=== PATIENT | male | born 1970 | race Caucasian/White ===

== ENCOUNTER 2019-05-26 13:59 | Emergency (ER) | payer BC, MEDICARE ==
[2019-05-26] MEDS ORDERED: Ketorolac 60 MG/2 ML SDV IM ONE (14:22)
--- NOTE | 2019-05-26 14:28 | EDM.PDOC ---
ED HPI GENERAL MEDICAL PROBLEM - General Chief Complaint: Back Pain or Injury Stated Complaint: BACK PAIN Time Seen by Provider: 05/26/19 14:04 Source of Information: Reports: Patient History Limitations: Reports: No Limitations - History of Present Illness INITIAL COMMENTS - FREE TEXT/NARRATIVE: HISTORY AND PHYSICAL: History of present illness: Patient is a 48-year-old male who presents to the ED today via private vehicle with concern of low back pain and neck pain after falling on the ice that occurred 4-5 days ago. Patient states he stepped out of his vehicle when he slipped on the ice and landed on his low back. Patient states he did not hit his head directly and did not lose consciousness. Patient states since then he' s had low back pain and neck pain. Patient states he also has had watery diarrhea over the past 2-3 days. Patient denies any other associated symptoms at the diarrhea or any other symptoms or concerns.Patient denies saddle anesthesia or any loss or retention of bowel and bladder function. Patient denies fever, chills, chest pain, shortness of breath, or cough. Denies headache, change in vision, syncope, or near syncope. Denies nausea, vomiting, abdominal pain, constipation, or dysuria. Has not noted any blood in urine or stool. Patient has been eating and drinking appropriately. Review of systems: As per history of present illness and below otherwise all systems reviewed and negative. Past medical history: As per history of present illness and as reviewed below otherwise noncontributory. Surgical history: As per history of present illness and as reviewed below otherwise noncontributory. Social history: See social history for further information Family history: As per history of present illness and as reviewed below otherwise noncontributory. Physical exam: General: Patient is alert, oriented, and in no acute distress. Patient sitting comfortably on exam table. HEENT: Atraumatic, normocephalic, pupils equal and reactive bilaterally, negative for conjunctival pallor or scleral icterus, mucous membranes moist, TMs normal bilaterally, throat clear, neck supple, nontender, trachea midline. No drooling or trismus noted. No meningeal signs. No hot potato voice noted. Lungs: Clear to auscultation, breath sounds equal bilaterally, chest nontender. Heart: S1S2, regular rate and rhythm without overt murmur Abdomen: Soft, nondistended, nontender. Negative for masses or hepatosplenomegaly. Negative for costovertebral tenderness. Pelvis: Stable nontender. Genitourinary: Deferred. Rectal: Deferred. Skin: Intact, warm, dry. No lesions or rashes noted. Extremities/musculoskeletal: Atraumatic, negative for cords or calf pain. Neurovascular unremarkable.No obvious deformity of the complete spine. No step- offs, crepitus, or point tenderness of the spinous process of complete spine. Patient does have pain with palpation of the right sided trapezius muscle and the paraspinous muscles of the lumbar spine. SLR intact bilaterally. Patellar reflex intact bilaterally. Heel/toe gait intact. Neuro: Awake, alert, oriented. Cranial nerves II through XII unremarkable. Cerebellum unremarkable. Motor and sensory unremarkable throughout. Exam nonfocal. Notes: Discussed the importance for follow-up with a primary care provider. Voices understanding and is agreeable to plan of care. Denies any further questions or concerns at this time. Diagnostics: CBC, CMP, UA, stool studies, ova and parasite, C. difficile, cervical XR, lumbar XR Therapeutics: Toradol, Norflex Prescription: Diclofenac, Flexeril Impression: Neck injury Low back injury H/O diarrhea Plan: 1. Take medication as prescribed. You can also use Tylenol as directed for pain and discomfort. 2. Follow-up with her primary care provider as discussed. Return to the ED as needed and as discussed. Definitive disposition and diagnosis as appropriate pending reevaluation and review of above. Back Pain Score (Numeric/FACES): 9 - Related Data Allergies Allergy/AdvReac Type Severity Reaction Status Date / Time No Known Allergies Allergy Verified 05/26/19 14:18 Home Meds: Home Meds . [No Known Home Meds] 05/26/19 [History] Past Medical History - Infectious Disease History Infectious Disease History: Reports: Chicken Pox - Past Surgical History GI Surgical History: Reports: Appendectomy Social & Family History - Family History Family Medical History: Noncontributory - Tobacco Use Smoking Status *Q: Never Smoker - Recreational Drug Use Recreational Drug Use: No ED ROS GENERAL - Review of Systems Review Of Systems: Comprehensive ROS is negative, except as noted in HPI. ED EXAM, GENERAL - Physical Exam Exam: See Below (see dictation) Course - Vital Signs Last Recorded V/S: Last Vital Signs Temp 97.0 F 05/26/19 14:12 Pulse 110 H 05/26/19 14:12 Resp 18 05/26/19 14:12 BP 148/79 H 05/26/19 14:12 Pulse Ox 96 05/26/19 14:12 - Orders/Labs/Meds Orders: Active Orders 24 hr Category Date Time Status CULTURE STOOL + CAMPY+SHIGATOX [RM] Stat Lab 05/26/19 15:00 Results OVA & PARASITES BY IMMUNOASSAY [MREF] Stat Lab 05/26/19 15:00 Received Labs: Laboratory Tests 05/26/19 05/26/19 05/26/19 Range/Units 14:29 14:29 15:00 WBC 7.67 (4.0-11.0) K/uL RBC 5.01 (4.50-5.90) M/uL Hgb 15.3 (13.0-17.0) g/dL Hct 43.8 (38.0-50.0) % MCV 87.4 (80.0-98.0) fL MCH 30.5 (27.0-32.0) pg MCHC 34.9 (31.0-37.0) g/dL RDW Std Deviation 44.1 (28.0-62.0) fl RDW Coeff of Ashley 14 (11.0-15.0) % Plt Count 267 (150-400) K/uL MPV 9.50 (7.40-12.00) fL Neut % (Auto) 68.1 (48.0-80.0) % Lymph % (Auto) 13.3 L (16.0-40.0) % Sunflower % (Auto) 14.5 (0.0-15.0) % Eos % (Auto) 4.0 (0.0-7.0) % Baso % (Auto) 0.1 (0.0-1.5) % Neut # (Auto) 5.2 (1.4-5.7) K/uL Lymph # (Auto) 1.0 (0.6-2.4) K/uL Sunflower # (Auto) 1.1 H (0.0-0.8) K/uL Eos # (Auto) 0.3 (0.0-0.7) K/uL Baso # (Auto) 0.0 (0.0-0.1) K/uL Sodium 139 (136-148) mmol/L Potassium 3.6 (3.5-5.1) mmol/L Chloride 104 (98-107) mmol/L Carbon Dioxide 21.3 (21.0-32.0) mmol/L BUN 16 (7.0-18.0) mg/dL Creatinine 1.1 (0.8-1.3) mg/dL Est Cr Clr Drug Dosing 91.12 mL/min Estimated GFR (MDRD) > 60.0 ml/min Glucose 155 H (74-106) mg/dL Calcium 8.6 (8.5-10.1) mg/dL Total Bilirubin 0.4 (0.2-1.0) mg/dL AST 17 (15-37) IU/L ALT 21 (14-63) IU/L Alkaline Phosphatase 89 (46-116) U/L Total Protein 7.4 (6.4-8.2) g/dL Albumin 3.5 (3.4-5.0) g/dL Globulin 3.9 (2.6-4.0) g/dL Albumin/Globulin Ratio 0.9 (0.9-1.6) Lipase 69 L (73-393) U/L Urine Color YELLOW Urine Appearance CLEAR Urine pH 5.5 (5.0-8.0) Ur Specific Eliot >= 1.030 (1.001-1.035) Urine Protein NEGATIVE (NEGATIVE) mg/dL Urine Glucose (UA) NEGATIVE (NEGATIVE) mg/dL Urine Ketones NEGATIVE (NEGATIVE) mg/dL Urine Occult Blood NEGATIVE (NEGATIVE) Urine Nitrite NEGATIVE (NEGATIVE) Urine Bilirubin NEGATIVE (NEGATIVE) Urine Urobilinogen 0.2 (<2.0) EU/dL Ur Leukocyte Esterase NEGATIVE (NEGATIVE) Meds: Medications Discontinued Medications Generic Name Dose Route Start Last Admin Trade Name Freq PRN Reason Stop Dose Admin Ketorolac Tromethamine 60 mg 05/26/19 14:22 05/26/19 14:44 Toradol IM 05/26/19 14:23 60 mg ONETIME ONE Administration Orphenadrine Citrate 60 mg 05/26/19 14:22 05/26/19 14:44 Norflex IM 05/26/19 14:23 60 mg ONETIME ONE Administration Departure - Departure Time of Disposition: 16:38 Disposition: Home, Self-Care 01 Clinical Impression: History of diarrhea Neck injury Qualifiers: Encounter type: initial encounter Qualified Code(s): S19.9XXA - Unspecified injury of neck, initial encounter Lower back injury Qualifiers: Encounter type: initial encounter Qualified Code(s): S39.92XA - Unspecified injury of lower back, initial encounter - Discharge Information Referrals: PCP,None [Primary Care Provider] - Forms: ED Department Discharge Additional Instructions: The following information is given to patients seen in the emergency department who are being discharged to home. This information is to outline your options for follow-up care. We provide all patients seen in our emergency department with a follow-up referral. The need for follow-up, as well as the timing and circumstances, are variable depending upon the specifics of your emergency department visit. If you don't have a primary care physician on staff, we will provide you with a referral. We always advise you to contact your personal physician following an emergency department visit to inform them of the circumstance of the visit and for follow-up with them and/or the need for any referrals to a consulting specialist. The emergency department will also refer you to a specialist when appropriate. This referral assures that you have the opportunity for follow-up care with a specialist. All of these measure are taken in an effort to provide you with optimal care, which includes your follow-up. Under all circumstances we always encourage you to contact your private physician who remains a resource for coordinating your care. When calling for follow-up care, please make the office aware that this follow-up is from your recent emergency room visit. If for any reason you are refused follow-up, please contact the [facility] Emergency Department at and asked to speak to the emergency department charge nurse. [facility] [address] [place] [id number] [id number] 1. Take medication as prescribed. You can also use Tylenol as directed for pain and discomfort. 2. Follow-up with her primary care provider as discussed. Return to the ED as needed and as discussed. - My Orders Last 24 Hours: My Active Orders 05/26/19 15:00 CULTURE STOOL + CAMPY+SHIGATOX [RM] Stat OVA & PARASITES BY IMMUNOASSAY [MREF] Stat - Assessment/Plan Last 24 Hours: My Active Orders 05/26/19 15:00 CULTURE STOOL + CAMPY+SHIGATOX [RM] Stat OVA & PARASITES BY IMMUNOASSAY [MREF] Stat
[2019-05-26 15:16] LABS: BLOOD UREA NITROGEN,BUN 16 mg/dL (7.0-18.0); CARBON DIOXIDE,CO2 21.3 mmol/L (21.0-32.0); CHLORIDE,CL 104 mmol/L (98-107); GLUCOSE RANDOM 155 mg/dL (74-106); LIPASE 69 U/L (73-393); POTASSIUM,K 3.6 mmol/L (3.5-5.1); SODIUM,NA 139 mmol/L (136-148)
--- NOTE | 2019-05-26 16:27 | CR ---
HISTORY: Pain after fall Saturday. COMPARISON: None available. FINDINGS: The lumbar spine was examined with AP, lateral, and lateral spot views for a total of three views. There is no sign of fracture or subluxation. The vertebral bodies are normal in height and they are in anatomic alignment. The disc spaces are normal in height as well. The visualized bony pelvis and bowel gas pattern are normal in appearance. Clips are seen in the right lower quadrant, probably from cholecystectomy. IMPRESSION: Normal lumbar spine. Dictated by Mk Varghese MD @ May 26 2019 4:23PM Signed by Dr. Mk Varghese @ May 26 2019 4:26PM
--- NOTE | 2019-05-26 16:27 | CR ---
INDICATION: Pain after fall Saturday. COMPARISON: None available. FINDINGS: The cervical spine was examined with AP, lateral, open mouth, and swimmers views for a total of four views. There is mild C5-6 disc degenerative disease with moderate anterior osteophyte formation. There is probably mild bilateral neural foraminal narrowing at this level from posterior osteophytes. The rest of the intervertebral discs are normal in appearance. The vertebral bodies are normal in height and they are in anatomic alignment. The prevertebral soft tissues are normal in appearance with no sign of swelling. The airway structures are normal in appearance. IMPRESSION: No sign of acute osseous injury to the cervical spine. Mild C5-6 disc degenerative disease. Dictated by Mk Varghese MD @ May 26 2019 4:22PM Signed by Dr. Mk Varghese @ May 26 2019 4:25PM
== END 2019-05-26 16:53 | disposition home or self-care (01) ==
LOC: MW.ED 13:59
DX: S39.92XA Unspecified injury of lower back, initial encounter (principal); S19.9XXA Unspecified injury of neck, initial encounter; R19.7 Diarrhea, unspecified; W00.0XXA Fall on same level due to ice and snow, initial encounter
CPT/HCPCS: 36415; 72040; 72100; 80053; 81003; 83690; 85025; 87046; 87328; 87329; 87899; 96372; 99284; J1885; J2360

== ENCOUNTER 2019-06-07 07:03 | Emergency (ER) | payer MEDICARE ==
[2019-06-07] MEDS ORDERED: Albuterol/Ipratropium 3.0-0.5 MG/3 ML Neb Soln ONE (07:06)
[2019-06-07] MEDS ORDERED: Albuterol/Ipratropium 3.0-0.5 MG/3 ML Neb Soln NEB ONE (07:15)
[2019-06-07] MEDS ORDERED: Levofloxacin 500 MG Tab PO ONE (07:49)
--- NOTE | 2019-06-07 07:53 | EDM.PDOC ---
ED HPI GENERAL MEDICAL PROBLEM - General Chief Complaint: Respiratory Problem Stated Complaint: SOB Time Seen by Provider: 06/07/19 07:51 Source of Information: Reports: Patient - History of Present Illness INITIAL COMMENTS - FREE TEXT/NARRATIVE: HISTORY AND PHYSICAL: History of present illness: [Presents with persistent cough over the last week increasing in severity keeping him awake at night no fever nausea vomiting chills sweats no chest pain shortness breath headache dizziness palpitation no bowel or urine symptoms ] Review of systems: As per history of present illness and below otherwise all systems reviewed and negative. Past medical history: As per history of present illness and as reviewed below otherwise noncontributory. Surgical history: As per history of present illness and as reviewed below otherwise noncontributory. Social history: No reported history of drug or alcohol abuse. Family history: As per history of present illness and as reviewed below otherwise noncontributory. Physical exam: HEENT: Atraumatic, normocephalic, pupils reactive, negative for conjunctival pallor or scleral icterus, mucous membranes moist, throat clear, neck supple, nontender, trachea midline. Lungs: Clear to auscultation, breath sounds equal bilaterally, chest nontender. Heart: S1S2, regular, negative for clicks, rubs, or JVD. Abdomen: Soft, nondistended, nontender. Negative for masses or hepatosplenomegaly. Negative for costovertebral tenderness. Pelvis: Stable nontender. Genitourinary: Deferred. Rectal: Deferred. Extremities: Atraumatic, negative for cords or calf pain. Neurovascular unremarkable. Neuro: Awake, alert, oriented. Cranial nerves II through XII unremarkable. Cerebellum unremarkable. Motor and sensory unremarkable throughout. Exam nonfocal. Diagnostics: [Influenza Chest 1 view EKG ] Therapeutics: [ neb Levaquin Prednisone HFA ] Impression: bronchitis infiltrate on cxr definenitive disposition and diagnosis as appropriate pending reevaluation and review of above. - Related Data Allergies Allergy/AdvReac Type Severity Reaction Status Date / Time No Known Allergies Allergy Verified 05/26/19 14:18 Home Meds: Home Meds Cyclobenzaprine [Flexeril] 10 mg PO TID PRN #9 tab 05/26/19 [Rx] Diclofenac Sodium [Voltaren] 75 mg PO BIDMEALS PRN #15 tab.cr 05/26/19 [Rx] Past Medical History - Infectious Disease History Infectious Disease History: Reports: Chicken Pox - Past Surgical History GI Surgical History: Reports: Appendectomy Social & Family History - Family History Family Medical History: Noncontributory - Tobacco Use Smoking Status *Q: Never Smoker Second Hand Smoke Exposure: No - Caffeine Use Caffeine Use: Reports: Coffee, Soda - Recreational Drug Use Recreational Drug Use: No ED ROS GENERAL - Review of Systems Review Of Systems: See Below ED EXAM, GENERAL - Physical Exam Exam: See Below Course - Vital Signs Last Recorded V/S: Last Vital Signs Temp 97.6 F 06/07/19 07:07 Pulse 113 H 06/07/19 07:07 Resp 24 H 06/07/19 07:07 BP 118/71 06/07/19 07:07 Pulse Ox 96 06/07/19 07:07 - Orders/Labs/Meds Orders: Active Orders 24 hr Category Date Time Status EKG Documentation Completion [RC] STAT Care 06/07/19 07:13 Active RT Aerosol Therapy [RC] ASDIRECTED Care 06/07/19 07:15 Active Chest 1V Frontal [CR] Stat Exams 06/07/19 07:13 Taken Meds: Medications Discontinued Medications Generic Name Dose Route Start Last Admin Trade Name Freq PRN Reason Stop Dose Admin Albuterol/Ipratropium Confirm 06/07/19 07:06 06/07/19 07:24 Duoneb 3.0-0.5 Mg/3 Ml Administered 06/07/19 07:07 Not Given Dose 3 ml .ROUTE .STK-MED ONE Albuterol/Ipratropium 3 ml 06/07/19 07:15 06/07/19 07:24 Duoneb 3.0-0.5 Mg/3 Ml NEB 06/07/19 07:16 3 ml ONETIME ONE Administration Levofloxacin 500 mg 06/07/19 07:49 Levaquin PO 06/07/19 07:50 ONETIME ONE Departure - Departure Time of Disposition: 07:52 Disposition: Home, Self-Care 01 Condition: Good Clinical Impression: Bronchitis, Pulmonary infiltrate on chest x-ray - Discharge Information Referrals: PCP,None [Primary Care Provider] - Additional Instructions: The following information is given to patients seen in the emergency department who are being discharged to home. This information is to outline your options for follow-up care. We provide all patients seen in our emergency department with a follow-up referral. The need for follow-up, as well as the timing and circumstances, are variable depending upon the specifics of your emergency department visit. If you don't have a primary care physician on staff, we will provide you with a referral. We always advise you to contact your personal physician following an emergency department visit to inform them of the circumstance of the visit and for follow-up with them and/or the need for any referrals to a consulting specialist. The emergency department will also refer you to a specialist when appropriate. This referral assures that you have the opportunity for follow-up care with a specialist. All of these measure are taken in an effort to provide you with optimal care, which includes your follow-up. Under all circumstances we always encourage you to contact your private physician who remains a resource for coordinating your care. When calling for follow-up care, please make the office aware that this follow-up is from your recent emergency room visit. If for any reason you are refused follow-up, please contact the [facility] emergency department at and asked to speak to the emergency department charge nurse. Sepsis Event Note - Evaluation Sepsis Screening Result: No Definite Risk - Focused Exam Vital Signs: Vital Signs Temp Pulse Resp BP Pulse Ox 06/07/19 07:07 97.6 F 113 H 24 H 118/71 96 Date Exam was Performed: 06/07/19 Time Exam was Performed: 07:51
--- NOTE | 2019-06-07 07:55 | CR ---
CHEST 1 VIEW AP INDICATION: Chest pain. IMPRESSION: Normal heart size and vascular pattern. Lungs are clear of focal opacities. No pneumothorax or pleural abnormality. Dictated by Jan Head MD @ Jun 07 2019 7:53AM Signed by Dr. Jan Head @ Jun 07 2019 7:53AM
== END 2019-06-07 08:10 | disposition home or self-care (01) ==
LOC: MW.ED 07:03
DX: J40 Bronchitis, not specified as acute or chronic (principal); R91.8 Other nonspecific abnormal finding of lung field
CPT/HCPCS: 71045; 87804; 93005; 96372; 99285; A9270; 99283; J7620-GY

== ENCOUNTER 2019-06-19 08:44 | Emergency (ER) | payer MEDICARE ==
--- NOTE | 2019-06-19 08:59 | EDM.PDOC ---
ED HPI GENERAL MEDICAL PROBLEM - General Chief Complaint: Respiratory Problem Stated Complaint: COLD, TROUBLE BREATHING Time Seen by Provider: 06/19/19 08:58 Source of Information: Reports: Patient History Limitations: Reports: No Limitations - History of Present Illness INITIAL COMMENTS - FREE TEXT/NARRATIVE: Patient is a 48-year-old male who is complaining of having upper respiratory infection with severe cough at times has been going on for several weeks. Patient was seen here and placed on antibiotic which he feels is Levaquin and did improve for about a week but is gotten worse for the last 4 days. Patient is not bringing up any phlegm with coughing but is feeling short of breath with his cough. He denies any chest pain or pressure any swelling or pain to his calfs or ankle. Patient has had pneumonia in the past 1 time only. He denies any fever or shaking chills and has not been nauseous or vomiting. He denies any bloody or tarry looking stools. Patient has used an albuterol inhaler in the past but does not currently have one. Duration: Week(s): (2 ) Location: Reports: Chest Worsens with: Reports: Breathing, Movement Associated Symptoms: Reports: Cough, Shortness of Breath (He has not because she now got CVA area tenderness on because of the lower back pain was given for now the pain which you did not have any when I first you asked she bought some lab work). Denies: cough w sputum, Fever/Chills - Related Data Allergies Allergy/AdvReac Type Severity Reaction Status Date / Time No Known Allergies Allergy Verified 06/19/19 08:56 Home Meds: Home Meds Cyclobenzaprine [Flexeril] 10 mg PO TID PRN #9 tab 05/26/19 [Rx] Diclofenac Sodium [Voltaren] 75 mg PO BIDMEALS PRN #15 tab.cr 05/26/19 [Rx] Past Medical History - Infectious Disease History Infectious Disease History: Reports: Chicken Pox - Past Surgical History GI Surgical History: Reports: Appendectomy Social & Family History - Family History Family Medical History: Noncontributory - Caffeine Use Caffeine Use: Reports: Coffee, Soda ED ROS GENERAL - Review of Systems Review Of Systems: Comprehensive ROS is negative, except as noted in HPI. ED EXAM, GENERAL - Physical Exam Exam: See Below Exam Limited By: No Limitations General Appearance: No Apparent Distress Throat/Mouth: Normal Inspection Head: Atraumatic, Normocephalic Neck: Normal Inspection, Supple Respiratory/Chest: No Respiratory Distress, Decreased Breath Sounds. No: Crackles, Rales, Rhonchi, Wheezing, Retractions Cardiovascular: Regular Rate, Rhythm, No Edema, No JVD GI/Abdominal: Normal Bowel Sounds, Soft, Non-Tender Back Exam: Normal Inspection Extremities: Normal Inspection, No Pedal Edema Neurological: Alert, Oriented, Normal Cognition Psychiatric: Normal Affect, Normal Mood Skin Exam: Warm, Dry Lymphatic: No Adenopathy Course - Vital Signs Last Recorded V/S: Last Vital Signs Temp 35.8 C 06/19/19 08:53 Pulse 81 06/19/19 10:11 Resp 20 06/19/19 10:11 BP 129/83 06/19/19 10:11 Pulse Ox 96 06/19/19 10:11 - Orders/Labs/Meds Orders: Active Orders 24 hr Category Date Time Status RT Aerosol Therapy [RC] ASDIRECTED Care 06/19/19 09:17 Active RT Aerosol Therapy [RC] ASDIRECTED Care 06/19/19 10:05 Active Labs: Laboratory Tests 06/19/19 06/19/19 06/19/19 Range/Units 09:25 09:25 09:25 WBC 7.49 (4.0-11.0) K/uL RBC 4.88 (4.50-5.90) M/uL Hgb 14.8 (13.0-17.0) g/dL Hct 44.4 (38.0-50.0) % MCV 91.0 (80.0-98.0) fL MCH 30.3 (27.0-32.0) pg MCHC 33.3 (31.0-37.0) g/dL RDW Std Deviation 46.1 (28.0-62.0) fl RDW Coeff of Ashley 14 (11.0-15.0) % Plt Count 331 (150-400) K/uL MPV 9.50 (7.40-12.00) fL Neut % (Auto) 67.7 (48.0-80.0) % Lymph % (Auto) 21.0 (16.0-40.0) % Shasta % (Auto) 8.1 (0.0-15.0) % Eos % (Auto) 2.9 (0.0-7.0) % Baso % (Auto) 0.3 (0.0-1.5) % Neut # (Auto) 5.1 (1.4-5.7) K/uL Lymph # (Auto) 1.6 (0.6-2.4) K/uL Shasta # (Auto) 0.6 (0.0-0.8) K/uL Eos # (Auto) 0.2 (0.0-0.7) K/uL Baso # (Auto) 0.0 (0.0-0.1) K/uL Nucleated RBC % 0.0 /100WBC Nucleated RBCs # 0 K/uL D-Dimer, Quantitative 0.40 (0.0-0.50) mg/L FEU Lactate 1.5 (0.20-2.00) mmol/L Sodium (136-148) mmol/L Potassium (3.5-5.1) mmol/L Chloride (98-107) mmol/L Carbon Dioxide (21.0-32.0) mmol/L BUN (7.0-18.0) mg/dL Creatinine (0.8-1.3) mg/dL Est Cr Clr Drug Dosing mL/min Estimated GFR (MDRD) ml/min Glucose (74-106) mg/dL Calcium (8.5-10.1) mg/dL Total Bilirubin (0.2-1.0) mg/dL AST (15-37) IU/L ALT (14-63) IU/L Alkaline Phosphatase (46-116) U/L Total Protein (6.4-8.2) g/dL Albumin (3.4-5.0) g/dL Globulin (2.6-4.0) g/dL Albumin/Globulin Ratio (0.9-1.6) 06/19/19 Range/Units 09:25 WBC (4.0-11.0) K/uL RBC (4.50-5.90) M/uL Hgb (13.0-17.0) g/dL Hct (38.0-50.0) % MCV (80.0-98.0) fL MCH (27.0-32.0) pg MCHC (31.0-37.0) g/dL RDW Std Deviation (28.0-62.0) fl RDW Coeff of Ashley (11.0-15.0) % Plt Count (150-400) K/uL MPV (7.40-12.00) fL Neut % (Auto) (48.0-80.0) % Lymph % (Auto) (16.0-40.0) % Shasta % (Auto) (0.0-15.0) % Eos % (Auto) (0.0-7.0) % Baso % (Auto) (0.0-1.5) % Neut # (Auto) (1.4-5.7) K/uL Lymph # (Auto) (0.6-2.4) K/uL Shasta # (Auto) (0.0-0.8) K/uL Eos # (Auto) (0.0-0.7) K/uL Baso # (Auto) (0.0-0.1) K/uL Nucleated RBC % /100WBC Nucleated RBCs # K/uL D-Dimer, Quantitative (0.0-0.50) mg/L FEU Lactate (0.20-2.00) mmol/L Sodium 141 (136-148) mmol/L Potassium 4.1 (3.5-5.1) mmol/L Chloride 104 (98-107) mmol/L Carbon Dioxide 24.2 (21.0-32.0) mmol/L BUN 22 H (7.0-18.0) mg/dL Creatinine 1.2 (0.8-1.3) mg/dL Est Cr Clr Drug Dosing 83.53 mL/min Estimated GFR (MDRD) > 60.0 ml/min Glucose 106 (74-106) mg/dL Calcium 8.4 L (8.5-10.1) mg/dL Total Bilirubin 0.2 (0.2-1.0) mg/dL AST 20 (15-37) IU/L ALT 30 (14-63) IU/L Alkaline Phosphatase 85 (46-116) U/L Total Protein 7.0 (6.4-8.2) g/dL Albumin 3.3 L (3.4-5.0) g/dL Globulin 3.7 (2.6-4.0) g/dL Albumin/Globulin Ratio 0.9 (0.9-1.6) Meds: Medications Discontinued Medications Generic Name Dose Route Start Last Admin Trade Name Keny PRN Reason Stop Dose Admin Albuterol/Ipratropium 3 ml 06/19/19 09:16 06/19/19 09:24 Duoneb 3.0-0.5 Mg/3 Ml NEB 06/19/19 09:17 3 ml ONETIME ONE Administration Albuterol/Ipratropium 3 ml 06/19/19 10:05 06/19/19 10:12 Duoneb 3.0-0.5 Mg/3 Ml NEB 06/19/19 10:06 3 ml ONETIME ONE Administration Sodium Chloride 1,000 mls @ 999 mls/hr 06/19/19 09:16 06/19/19 09:33 Normal Saline IV 06/19/19 10:16 999 mls/hr .BOLUS ONE Administration Prednisone 60 mg 06/19/19 09:16 06/19/19 09:32 Prednisone PO 06/19/19 09:17 60 mg ONETIME ONE Administration - Re-Assessments/Exams Free Text/Narrative Re-Assessment/Exam: 06/19/19 11:06 Patient's EKG chest x-ray and lab work is unremarkable. I do not see any sign of pneumonia on my clinical exam and chest x-ray. Patient does not become hypoxic with exertion. DuoNeb treatment gave patient's mild relief from his cough and planning to start him on a Z-Manuel and continue with prednisone and albuterol and add a cough medicine to the mix. Patient is instructed to return to emergency department if symptoms were to worsen and to follow-up with a PCP if not improving. Departure - Departure Time of Disposition: 11:08 Disposition: Home, Self-Care 01 Condition: Good (Pinky) Clinical Impression: Acute bronchitis - Discharge Information Instructions: Shortness of Breath, Adult, [id number], Acute Bronchitis, Adult Referrals: PCP,Unknown [Primary Care Provider] - Forms: ED Department Discharge Additional Instructions: The following information is given to patients seen in the emergency department who are being discharged to home. This information is to outline your options for follow-up care. We provide all patients seen in our emergency department with a follow-up referral. The need for follow-up, as well as the timing and circumstances, are variable depending upon the specifics of your emergency department visit. If you don't have a primary care physician on staff, we will provide you with a referral. We always advise you to contact your personal physician following an emergency department visit to inform them of the circumstance of the visit and for follow-up with them and/or the need for any referrals to a consulting specialist. The emergency department will also refer you to a specialist when appropriate. This referral assures that you have the opportunity for follow-up care with a specialist. All of these measure are taken in an effort to provide you with optimal care, which includes your follow-up. Under all circumstances we always encourage you to contact your private physician who remains a resource for coordinating your care. When calling for follow-up care, please make the office aware that this follow-up is from your recent emergency room visit. If for any reason you are refused follow-up, please contact the [facility] Emergency Department at and asked to speak to the emergency department charge nurse. Sepsis Event Note - Evaluation Sepsis Screening Result: No Definite Risk - Focused Exam Vital Signs: Vital Signs Temp Pulse Resp BP Pulse Ox 06/19/19 10:11 81 20 129/83 96 06/19/19 08:53 35.8 C 107 H 30 H 126/65 95 Date Exam was Performed: 06/19/19 Time Exam was Performed: 11:02 - My Orders Last 24 Hours: My Active Orders 06/19/19 09:17 RT Aerosol Therapy [RC] ASDIRECTED 06/19/19 10:05 RT Aerosol Therapy [RC] ASDIRECTED - Assessment/Plan Last 24 Hours: My Active Orders 06/19/19 09:17 RT Aerosol Therapy [RC] ASDIRECTED 06/19/19 10:05 RT Aerosol Therapy [RC] ASDIRECTED
[2019-06-19] MEDS ORDERED: Sodium Chloride 0.9% 1,000 ML IV ONE (09:16)
[2019-06-19] MEDS ORDERED: Albuterol/Ipratropium 3.0-0.5 MG/3 ML Neb Soln NEB ONE ×2 (09:16→10:05)
[2019-06-19] MEDS ORDERED: predniSONE 20 MG Tab PO ONE (09:16)
[2019-06-19 10:03] LABS: BLOOD UREA NITROGEN,BUN 22 mg/dL (7.0-18.0); CARBON DIOXIDE,CO2 24.2 mmol/L (21.0-32.0); CHLORIDE,CL 104 mmol/L (98-107); GLUCOSE RANDOM 106 mg/dL (74-106); POTASSIUM,K 4.1 mmol/L (3.5-5.1); SODIUM,NA 141 mmol/L (136-148)
--- NOTE | 2019-06-19 10:30 | CR ---
INDICATION: Dyspnea on exertion. Nonproductive cough. TECHNIQUE: Chest 2 views COMPARISON: 06/07/2019. FINDINGS: Cardiovascular and mediastinum: Heart size and vasculature are normal in caliber and appearance. Lungs and pleural spaces: Lungs are clear. No sign of infiltrate or mass. No sign of pleural effusion. No pneumothorax. Bones and soft tissues: No significant findings. IMPRESSION: Negative chest. Dictated by Frank Estevez MD @ Jun 19 2019 10:27AM Signed by Dr. Frank Estevez @ Jun 19 2019 10:28AM
== END 2019-06-19 11:38 | disposition home or self-care (01) ==
LOC: MW.ED 08:44
DX: J20.9 Acute bronchitis, unspecified (principal); Z86.73 Personal history of transient ischemic attack (TIA), and cerebral infarction without residual deficits
CPT/HCPCS: 36415; 71046; 80053; 83605; 85025; 85379; 93005; 96360; 96361; 99284; A9270; J7030; J7620-GY

== ENCOUNTER 2019-07-06 00:24 | Emergency (ER) | payer MEDICARE, BC ==
[2019-07-06] MEDS ORDERED: Albuterol/Ipratropium 3.0-0.5 MG/3 ML Neb Soln NEB ONE ×2 (00:38→02:37)
--- NOTE | 2019-07-06 01:23 | CR ---
INDICATION: Cough TECHNIQUE: Chest radiograph 1 view COMPARISON: None FINDINGS: Severe degradation of image quality noted due to body habitus. Mediastinum: The mediastinum is normal in appearance. The heart silhouette is normal in size and morphology. Lung: Both lungs are unremarkable in appearance with small lung volumes. No sign of pleural effusion seen. No pneumothorax is identified. Bone and Soft tissue: Unremarkable for age. IMPRESSION: 1. No acute cardiopulmonary disease is seen. 2. Severe degradation of image quality noted due to body habitus. Dictated by: Jorge Ryan MD @ 07/06/2019 01:21:14 (Electronically Signed)
--- NOTE | 2019-07-06 01:52 | EDM.PDOC ---
ED HPI GENERAL MEDICAL PROBLEM - General Chief Complaint: Respiratory Problem Stated Complaint: SHORTNESS OF BREATH, SEVERE COUGHING Time Seen by Provider: 07/06/19 00:44 Source of Information: Reports: Patient History Limitations: Reports: No Limitations - History of Present Illness INITIAL COMMENTS - FREE TEXT/NARRATIVE: 48-year-old gentleman presents the emergency room with a chief complaint of ongoing coughing. Patient does not know why he is coughing has been to the emergency room twice has not followed up with any physician about his problems Onset: Sudden Duration: Day(s): Location: Reports: Head Quality: Reports: Same as Previous Episode Severity: Mild Improves with: Reports: None Worsens with: Reports: None Associated Symptoms: Reports: No Other Symptoms, Cough chest Pain Score (Numeric/FACES): 5 - Related Data Allergies Allergy/AdvReac Type Severity Reaction Status Date / Time No Known Allergies Allergy Verified 07/06/19 00:35 Home Meds: Home Meds Albuterol Sulfate [Albuterol Sulfate Hfa] 8.5 gm IH QID PRN #1 [id number] [Rx] Past Medical History - Past Health History Medical/Surgical History: Denies Medical/Surgical History Respiratory History: Reports: Pneumonia, Recurrent Endocrine/Metabolic History: Reports: Obesity/BMI 30+ - Infectious Disease History Infectious Disease History: Reports: Chicken Pox - Past Surgical History GI Surgical History: Reports: Appendectomy Social & Family History - Family History Family Medical History: Noncontributory - Tobacco Use Smoking Status *Q: Never Smoker - Caffeine Use Caffeine Use: Reports: Coffee, Soda - Recreational Drug Use Recreational Drug Use: No ED ROS GENERAL - Review of Systems Review Of Systems: Comprehensive ROS is negative, except as noted in HPI. Constitutional: Reports: No Symptoms HEENT: Reports: No Symptoms Respiratory: Reports: Shortness of Breath, Cough Cardiovascular: Reports: No Symptoms Endocrine: Reports: No Symptoms GI/Abdominal: Reports: No Symptoms : Reports: No Symptoms Musculoskeletal: Reports: No Symptoms Skin: Reports: No Symptoms Neurological: Reports: No Symptoms Psychiatric: Reports: No Symptoms Hematologic/Lymphatic: Reports: No Symptoms Immunologic: Reports: No Symptoms ED EXAM, GENERAL - Physical Exam Exam: See Below Exam Limited By: No Limitations General Appearance: Alert, WD/WN, No Apparent Distress Ears: Normal External Exam, Normal Canal, Hearing Grossly Normal, Normal TMs Nose: Normal Inspection, Normal Mucosa Throat/Mouth: Normal Inspection, Normal Lips Head: Atraumatic, Normocephalic, Sinus Tenderness Neck: Normal Inspection Respiratory/Chest: No Respiratory Distress, Lungs Clear, Normal Breath Sounds, No Accessory Muscle Use GI/Abdominal: Normal Bowel Sounds, Soft, Non-Tender, No Abnormal Bruit (Male) Exam: No Hernia, Normal Inspection Rectal (Males) Exam: Deferred Back Exam: Normal Inspection Extremities: Normal Inspection, Normal Range of Motion, No Pedal Edema Neurological: Alert, Oriented, CN II-XII Intact, Normal Cognition Psychiatric: Anxious Skin Exam: Warm Lymphatic: No Adenopathy Course - Vital Signs Last Recorded V/S: Last Vital Signs Temp 97 F 07/06/19 00:24 Pulse 97 07/06/19 00:24 Resp 24 H 07/06/19 00:24 BP 150/96 H 07/06/19 00:24 Pulse Ox 98 07/06/19 00:24 - Orders/Labs/Meds Orders: Active Orders 24 hr Category Date Time Status EKG Documentation Completion [RC] STAT Care 07/06/19 00:30 Active RT Aerosol Therapy [] ASDIRECTED Care 07/06/19 00:38 Active BORD PERTUSS NUCLEIC ACID AMP [MREF] Stat Lab 07/06/19 00:40 Ordered INFLUENZA A+B AG SCREEN [] Stat Lab 07/06/19 00:40 Ordered RESPIRATORY SYNCYTIAL VIRUS AG [] Stat Lab 07/06/19 03:45 Ordered Meds: Medications Discontinued Medications Generic Name Dose Route Start Last Admin Trade Name Freq PRN Reason Stop Dose Admin Albuterol/Ipratropium 3 ml 07/06/19 00:38 07/06/19 00:40 Duoneb 3.0-0.5 Mg/3 Ml NEB 07/06/19 00:39 3 ml ONETIME ONE Administration Albuterol/Ipratropium 3 ml 07/06/19 02:37 07/06/19 02:55 Duoneb 3.0-0.5 Mg/3 Ml NEB 07/06/19 02:38 3 ml ONETIME ONE Administration Prednisone 40 mg 07/06/19 02:47 07/06/19 02:55 Prednisone PO 07/06/19 02:48 40 mg STAT ONE Administration Departure - Departure Time of Disposition: 03:51 Disposition: Home, Self-Care 01 Condition: Good Clinical Impression: Anxiety disorder - Discharge Information Referrals: PCP,None [Primary Care Provider] - Forms: ED Department Discharge Sepsis Event Note - Evaluation Sepsis Screening Result: No Definite Risk - Focused Exam Vital Signs: Vital Signs Temp Pulse Resp BP Pulse Ox 07/06/19 00:24 97 F 97 24 H 150/96 H 98 Date Exam was Performed: 07/06/19 Time Exam was Performed: 03:48 - My Orders Last 24 Hours: My Active Orders 07/06/19 00:30 EKG Documentation Completion [RC] STAT 07/06/19 00:38 RT Aerosol Therapy [RC] ASDIRECTED 07/06/19 00:40 BORD PERTUSS NUCLEIC ACID AMP [MREF] Stat INFLUENZA A+B AG SCREEN [RM] Stat 07/06/19 03:45 RESPIRATORY SYNCYTIAL VIRUS AG [RM] Stat - Assessment/Plan Last 24 Hours: My Active Orders 07/06/19 00:30 EKG Documentation Completion [RC] STAT 07/06/19 00:38 RT Aerosol Therapy [RC] ASDIRECTED 07/06/19 00:40 BORD PERTUSS NUCLEIC ACID AMP [MREF] Stat INFLUENZA A+B AG SCREEN [RM] Stat 07/06/19 03:45 RESPIRATORY SYNCYTIAL VIRUS AG [RM] Stat
[2019-07-06] MEDS ORDERED: predniSONE 20 MG Tab PO ONE (02:47)
== END 2019-07-06 05:00 | disposition home or self-care (01) ==
LOC: MW.ED 00:24
DX: F41.9 Anxiety disorder, unspecified (principal); E66.9 Obesity, unspecified; Z68.38 Body mass index [BMI] 38.0-38.9, adult
CPT/HCPCS: 71045; 87798; 87804; 87807; 93005; 99285; A9270; 99283; J7620-GY